=== PATIENT | female | born 1970 | race African-American/Black ===

== ENCOUNTER → 2017-10-12 | Outpatient (CLI) | payer BC ==
--- NOTE | 2017-10-12 16:58 | WOMENS IMAGING REPORT ---
EXAM DESCRIPTION: BILAT SCREENING MAMMO W/CAD COMPLETED DATE/TIME: 10/12/2017 3:54 pm REASON FOR STUDY: ROUTINE SCREENING;Z12.31 Z12.31 ENCNTR SCREEN MAMMOGRAM FOR MALIGNANT NEOPLASM OF YOVANY COMPARISON: None. TECHNIQUE: Standard craniocaudal and mediolateral oblique views of each breast recorded using [employer] acquisition. LIMITATIONS: None. FINDINGS: No masses, calcifications or architectural distortion. No areas of suspicion. Read with the assistance of CAD. .[facility] - R2 Cenova Version 1.3 .[facility] - R2 Cenova Version 1.3 .[facility] - R2 Cenova Version 2.4 .[facility] [place] - R2 Cenova Version 2.4 .ON LICENSE OF [facility] - R2 [employer] Program Technician Version 9.2 IMPRESSION: NORMAL MAMMOGRAM. BIRADS 1. BREAST DENSITY: c. The breasts are heterogeneously dense, which may obscure small masses. BIRAD: 1 NEGATIVE RECOMMENDATION: ROUTINE SCREENING COMMENT: The patient has been notified of the results by letter per SA requirements. Additional no tification policies are in place for contacting patient with suspicious or incomplete findings. Quality ID #225: The [employer] recommends an annual screening mammogram for women aged 40 years or over. This facility utilizes a reminder system to ensure that all patients receive reminder letters, and/or direct phone calls for appointments. This includes reminders for routine scr eening mammograms, diagnostic mammograms, or other Breast Imaging Interventions when appropriate. Th is patient will be placed in the appropriate reminder system. The [employer] (ACR) has developed recommendations for screening MRI of the breast s in certain patient populations, to be used in conjunction with mammography. Breast MRI surveillanc e may be appropriate for women with more than 20% lifetime risk of developing breast cancer as deter mined by genetic testing, significant family history of the disease, or history of mantle radiation f or Hodgkins Disease. ACR Practice Guidelines 2008. TECHNICAL DOCUMENTATION: FINDING NUMBER: (1) ASSESSMENT: (1) JOB ID: [id number] [employer]- All Rights Reserved Reading location - IP/workstation name: [email or web address]
== END ==
LOC: WI 15:19
PROVIDERS: ATTEND Physician Assistant
DX: Z12.31 Encounter for screening mammogram for malignant neoplasm of breast (principal)
CPT/HCPCS: 77067

== ENCOUNTER 2019-01-11 17:32 | Emergency (ER) | payer BC ==
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
[2019-01-11 19:12] LABS: ABSOLUTE BASOPHILS # (AUTO) 0.1 10^3/uL (0.0-0.2); ABSOLUTE EOSINOPHILS # (AUTO) 0.1 10^3/uL (0.0-0.6); ABSOLUTE LYMPHOCYTES (AUTO) 1.7 10^3/uL (0.5-4.7); ABSOLUTE MONOCYTES (AUTO) 0.4 10^3/uL (0.1-1.4); ABSOLUTE NEUT (AUTO) 1.8 10^3/uL (1.7-8.2); BASOPHILS % (AUTO) 1.3 % (0-2); EOSINOPHILS % (AUTO) 2.7 % (0-6); HEMATOCRIT 30.2 % (36.0-47.0); HEMOGLOBIN 10.3 g/dL (12.0-15.5); LYMPHOCYTES % (AUTO) 42.3 % (13-45); MEAN CORPUSCULAR HEMOGLOBIN 28.5 pg (27.0-33.4); MEAN CORPUSCULAR VOLUME 84 fl (80-97); MONOCYTES % (AUTO) 10.4 % (3-13); PLATELET COUNT 248 10^3/uL (150-450); RED BLOOD COUNT 3.61 10^6/uL (3.72-5.28); RED CELL DISTRIBUTION WIDTH 14.5 % (11.5-14.0); SEGMENTED NEUTROPHILS % (AUTO) 43.3 % (42-78); TOTAL CELLS COUNTED % (AUTO) 100 %; WHITE BLOOD COUNT 4.1 10^3/uL (4.0-10.5)
[2019-01-11 19:17] LABS: APPEARANCE,URINE CLEAR; BILIRUBIN,URINE NEGATIVE (NEGATIVE); COLOR,URINE STRAW; GLUCOSE, URINE NEGATIVE (NEGATIVE); KETONES,URINE NEGATIVE (NEGATIVE); LEUKOCYTE ESTERASE,URINE NEGATIVE (NEGATIVE); NITRITE,URINE NEGATIVE (NEGATIVE); PROTEIN,URINE 100 mg/dL (NEGATIVE); UROBILINOGEN,URINE NEGATIVE mg/dL (<2.0)
[2019-01-11 19:30] LABS: ALBUMIN 4.3 g/dL (3.5-5.0); ALKALINE PHOSPHATASE 50 U/L (38-126); ANION GAP 7 (5-19); ASPARTATE AMINO TRANSFERASE 24 U/L (14-36); BILIRUBIN,DIRECT 0.1 mg/dL (0.0-0.4); BILIRUBIN,TOTAL 0.3 mg/dL (0.2-1.3); BLOOD UREA NITROGEN 17 mg/dL (7-20); CARBON DIOXIDE 27 mmol/L (22-30); CHLORIDE 102 mmol/L (98-107); GLUCOSE 120 mg/dL (75-110); POTASSIUM 3.9 mmol/L (3.6-5.0); TOTAL PROTEIN 8.7 g/dL (6.3-8.2)
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
[2019-01-11 21:52] VITALS: BP 146/71
== END 2019-01-11 21:49 | disposition home or self-care (01) ==
LOC: ER 17:32
DX: S30.1XXA Contusion of abdominal wall, initial encounter (principal); R07.81 Pleurodynia; W22.8XXA Striking against or struck by other objects, initial encounter; Y93.89 Activity, other specified; Y92.810 Car as the place of occurrence of the external cause; R59.1 Generalized enlarged lymph nodes; Z88.8 Allergy status to other drugs, medicaments and biological substances; Z91.018 Allergy to other foods
CPT/HCPCS: 36415; 74177; 80053; 81001; 81025; 85025; 99284

== ENCOUNTER → 2019-01-21 | Day surgery (SDC) | payer BC ==
--- NOTE | 2019-01-21 11:40 | RADIOLOGY REPORT (SQ) ---
EXAM DESCRIPTION: U/S BIOPSY SUPERFIC LYMPH NODE COMPLETED DATE/TIME: 01/21/2019 11:15 am REASON FOR STUDY: GENRALIZED ENLARGED LYMPH NODES R59.1 GENERALIZED ENLARGED LYMPH NODES COMPARISON: CT 01/11/2019 TECHNIQUE: The procedure was discussed with the patient and the patient agreed to proceed. Sonograp hic evaluation was performed demonstrating multiple left axillary lymph nodes, largest measuring 2.6 x 1.2 cm. There is normal reniform shape with cortical thickening up to 5 mm. After sterile skin prep and 8 mL local lidocaine 1 % skin and deep tissue anesthesia, a 20 gauge biop sy needle was used to obtain several cores of tissue from the lesion. The samples were given to on-s ite pathology which deemed specimens adequate Hemostasis was achieved with manual compression. A sterile dressing was applied. Patient tolerated the procedure well left the ultrasound suite in stable condition. LIMITATIONS: None. FINDINGS: Ultrasound-guided left axillary lymph node biopsy as above. Intraprocedural imaging demon strates needle biopsy trough across the lymph node of interest. IMPRESSION: Ultrasound-guided core biopsy of the left axillary lymph node as detailed above. COMMENT: Patient medication list reviewed: Yes- Quality ID# [id number]:Eligible professional attests to doc umenting in the medical record they obtained, updated, or reviewed the patient's current medications. TECHNICAL DOCUMENTATION: JOB ID: [id number] [employer]- All Rights Reserved Reading location - IP/workstation name: [email or web address]
== END ==
LOC: RAD 09:28
PROVIDERS: ATTEND Family Medicine
DX: R59.1 Generalized enlarged lymph nodes (principal)
CPT/HCPCS: 38505; 88173; 88184; 88185; 88233; 88262